=== PATIENT | male | born 1965 | race American Indian/Alaskan Native ===

== ENCOUNTER 2021-08-27 04:37 | Emergency (ER) | payer SELFPAY ==
[2021-08-27] MEDS ORDERED: HALOPERIDOL LACTATE 5 MG/1 ML INJ IM ONE (04:43)
[2021-08-27] MEDS ORDERED: SODIUM CHLORIDE 0.9% 1000 ML 1,000 ML IV ONE ×2 (04:46)
[2021-08-27] MEDS ORDERED: TETANUS,DIPH,PERTUSS(ACELL) VACCINE 0.5 ML SYRINGE IM ONE (04:48)
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
[2021-08-27 05:36] VITALS: BP 95/50
[2021-08-27 05:40] LABS: Basophils % (Auto) 0.1 % (0.0-1.8); Eosinophils % (Auto) 0.4 % (0.0-4.3); Hematocrit 41.4 % (35.5-45.6); Lymphocytes # (Auto) 1.7 K/mm3 (1.2-5.4); Lymphocytes % (Auto) 14.7 % (13.4-35.0); Mean Corpuscular HGB Conc 32 % (32-34); Mean Corpuscular Volume 76 fl (84-94); Monocytes # (Auto) 0.5 K/mm3 (0.0-0.8); Monocytes % (Auto) 4.3 % (0.0-7.3); Platelet Count 279 K/mm3 (140-440); Red Blood Count 5.43 M/mm3 (3.65-5.03); Red Cell Distribution Width 15.3 % (13.2-15.2)
[2021-08-27 05:50] LABS: INR 0.96 (0.87-1.13)
[2021-08-27 05:51] LABS: Partial Thromboplastin Time 27.9 Sec. (24.2-36.6)
[2021-08-27 06:05] LABS: Albumin 4.5 g/dL (3.9-5); Calcium 9.4 mg/dL (8.4-10.2)
[2021-08-27 06:10] LABS: Amphetamine Screen,Urine PRESUMPTIVE NEGATIVE; Benzodiazepines Screen,Urine PRESUMPTIVE NEGATIVE; Cannabinoid Screen,Urine PRESUMPTIVE NEGATIVE; Cocaine Screen,Urine PRESUMPTIVE POSITIVE; Methadone Screen,Urine PRESUMPTIVE NEGATIVE; Opiate Screen,Urine PRESUMPTIVE NEGATIVE
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
[2021-08-27] MEDS ORDERED: SODIUM CHLORIDE 0.9% 1000 ML 1,000 ML ONE (08:44)
--- NOTE | 2021-08-30 18:42 | Electrocardiograph Report ---
[facility] Test Date: 2021-08-27 Test Time: 05:09:23 Pat Name: SANAZ BOYCE Department: Room: Gender: M Poly Operator: : 1965 Requested By: KEVYN HU Order Number: [id number] Reading MD: Madyson Vines Measurements Intervals [place] Rate: 114 P: 78 [place]: 150 QRS: 56 QRSD: 87 T: 42 QT: 372 QTc: 512 Interpretive Statements Sinus tachycardia Prolonged QT interval No previous ECG available for comparison Electronically Signed On 08-30-2021 18:41:44 EDT by Madyson Vines
== END 2021-08-27 11:50 | disposition left against medical advice (07) ==
LOC: ED 04:37
DX: F10.129 Alcohol abuse with intoxication, unspecified (principal); F14.129 Cocaine abuse with intoxication, unspecified; R79.1 Abnormal coagulation profile; Z79.899 Other long term (current) drug therapy; V87.7XXA Person injured in collision between other specified motor vehicles (traffic), initial encounter; Y93.89 Activity, other specified; Y92.488 Other paved roadways as the place of occurrence of the external cause; Y99.8 Other external cause status; Y90.9 Presence of alcohol in blood, level not specified
CPT/HCPCS: 36415; 70450; 71045; 72125; 74176; 80053; 80307; 82550; 85025; 85610; 85730; 93005; 96360; 96361; 96372; 99285; J1630; J7030; 80320; G0480